=== PATIENT | female | born 1965 | race Caucasian/White ===

== ENCOUNTER 2021-09-21 06:55 | Day surgery (SDC) | payer OTHER ==
[~2021-09-21] VITALS: Ht 162.6 cm; Wt 104.5 kg
[~2021-09-21 06:55] MED LIST: B-121000 MC1 SL; CELEXA10 MG PO; CYMBALTA60 MG PO; L-METHYLFOLATE15 M1 PO; NEURONTIN300 MG PO; WELLBUTRIN SR150 MG PO
--- NOTE | 2021-09-21 08:44 | NUR ---
PT ALERT, ORIENTED AND HERE FOR ROUTINE SCOPE. PT HAS HAD SCOPES PREVIOUS. ALL QUESTIONS ASKED ANSWERED. [place]. GAVE BLESSING
--- NOTE | 2021-09-21 08:45 | NUR ---
09/21/21 0845 Barby Wright 0836- PT ARRIVES TO PACU AWAKE AND TALKING. PT REPORTS NO PAIN OR NAUSEA. RESP EVEN AND UNLABORED. OXYGEN SAT MID TO HIGH 90'S ON 2L VIA CO2 NC. 0844- PT PASSING FLATUS. PT REPORTS THIS HELPS WITH HER ABD CRAMPING.
--- NOTE | 2021-09-21 10:49 | OR ---
[facility] [address] [place], [place] [address] Signed DATE OF OPERATION: 09/21/2021 SURGEON: Juan Luis Godfrey MD PREOPERATIVE DIAGNOSES: 1. Sister with a history of colonic polyps and Crohn disease. 2. Personal history of hyperplastic polyps in 2018 at age 52. 3. Diverticulosis. 4. Internal and external hemorrhoids. POSTOPERATIVE DIAGNOSES: 1. Minimal to moderate sigmoid diverticulosis. 2. Small mid right colon lipoma. 3. Moderate internal hemorrhoids. 4. 6 mm sessile polyp at 40 cm. 5. 5 mm polyp at 70 cm. 6. 4 mm polyps x2 at 12 cm/rectum. PROCEDURE: Colonoscopy with hot biopsy. ESTIMATED BLOOD LOSS: None. INDICATIONS: Savannah is a 56-year-old obese female, asked to see me for a followup colonoscopy. We know her sister who undergoes colonoscopy every year at our [facility]. Part of this is for Crohn disease, but apparently she has had multiple colonic polyps removed as well. There was some consideration she was going to need part of her intestine removed. That has been held off at this time. Savannah came to us in 2018 at the age of 52. She had moderate diverticulosis along with internal and external hemorrhoids. We did remove some hyperplastic polyps as well. She requires monitored anesthesia care because of her body habitus, sleep apnea and her use of marijuana and alcohol. More recently, she has no lower GI complaints. In the office, I had given her a pamphlet on colonoscopy and she recalls the nature of the test. There is risk including, but not limited to gas bloating, crampy abdominal pain, bleeding, perforation requiring surgery, and missed diagnosis. She also recalls the need for the monitored anesthesia care. She had expressed understanding and wished to proceed. PROCEDURE NOTE: Electronically Signed By: JUAN LUIS GODFREY MD 09/21/21 1049 PATIENT NAME: SAVANNAH CONSTANTINO OPERATIVE REPORT DATE OF : 69 REPORT #: [id number] PHYSICIAN: JUAN LUIS GODFREY MD PCP: RICHELLE PIERCE DO REPORT IS CONFIDENTIAL AND NOT TO BE RELEASED WITHOUT AUTHORIZATION [facility] [address], [place] [address] Signed Savannah was taken into our endoscopy suite and placed in the left lateral decubitus position. She was given monitored anesthesia care with propofol per our nurse glost tile sorter. Indeed, Savannah needed some airway control as well as some increase in her propofol. A digital rectal exam was performed and on this occasion she did not have much in the way of external hemorrhoids. She has good sphincter tone. The adult colonoscope was introduced and advanced all the way around into the cecum under direct visualization of the camera. She required extra sedation and abdominal compression in order to advance the scope. Her prep was quite excellent. We could easily see the appendiceal orifice and ileocecal valve. The scope was then slowly withdrawn. The above-mentioned polyps were removed with the help of hot biopsy forceps. We did see a small lipoma in her mid right colon. She does have some diverticula. They were moderate in size, few to moderate in number, and scattered about in the sigmoid colon. The scope had been retroflexed in the rectum. She does have moderate internal hemorrhoid columns. After this, the gas was suctioned out and the colonoscope removed. Savannah tolerated the procedure quite well. RECOMMENDATIONS: I will see Savannah back in my office in 7 to 14 days to review her results. She more than likely will stay on the 5-year rotation. Juan Luis Godfrey MD ALB/MODL /[id number] cc: DO Juan Luis Thomas MD Copies: RICHELLE PIERCE ANDREW L MD ~ Electronically Signed By: JUAN LUIS GODFREY MD 09/21/21 1049 PATIENT NAME: SAVANNAH CONSTANTINO OPERATIVE REPORT DATE OF : 69 REPORT #: [id number] PHYSICIAN: JUAN LUIS GODFREY MD PCP: RICHELLE PIERCE DO REPORT IS CONFIDENTIAL AND NOT TO BE RELEASED WITHOUT AUTHORIZATION
--- NOTE | 2021-09-24 12:15 | PATH ---
[facility] [address] [place], [place] [address] Signed SPECIMEN(S): A COLON POLYP AT 40 CM SPECIMEN(S): B COLON POLYP AT 70 CM SPECIMEN(S): C RECTAL POLYP AT 12 CM SPECIMEN SOURCE: A. COLON POLYP AT 40 CM B. COLON POLYP AT 70 CM C. RECTAL POLYP AT 12 CM CLINICAL HISTORY: Family history of polyps, Crohn's. Colon polyps, lipoma mid right colon, internal hemorrhoids, diverticulosis FINAL PATHOLOGIC DIAGNOSIS: A. Colon polyp at 40 cm: - Hyperplastic polyp (one fragment). B. Colon polyp at 70 cm: - Tubular adenoma (one fragment). C. Rectal polyp at 12 cm: - Hyperplastic polyp (two fragments). JVR:[facility]:[id number] MICROSCOPIC EXAMINATION: Histologic sections of all submitted blocks are examined by light microscopy. These findings, together with the gross examination, support the pathologic diagnosis. GROSS DESCRIPTION: Three specimens are received in three containers, labeled "TO." A. The specimen, labeled "TO, colon polyp at 40 cm," is received in formalin and consists of one mcnair soft tissue fragment that measures 0.2 cm in greatest dimension. The specimen is entirely submitted in cassette (A1). B. The specimen, labeled "TO, colon polyp at 70 cm," is received in formalin and consists of one mcnair soft tissue fragment that measures 0.1 cm in greatest dimension. The specimen is entirely submitted in cassette (B1). C. The specimen, labeled "TO, rectal polyp at 12 cm," is received in formalin and consists of two mcnair soft tissue fragment(s) that measure 0.1-0.2 cm in greatest dimension. The specimen is entirely submitted in cassette (C1). PATIENT NAME: BILLIE CONSTANTINO PATHOLOGY DATE OF : 69 REPORT #: [id number] PHYSICIAN: AURY RUIZ PCP: RICHELLE PIERCE DO REPORT IS CONFIDENTIAL AND NOT TO BE RELEASED WITHOUT AUTHORIZATION [facility] [address] [facility] [place], [place] [address] Signed JS (under the direct supervision of a pathologist) The Gross Description was prepared using a voice recognition system. The report was reviewed for accuracy; however, sound-alike word errors, addition and/or deletions may occur. If there is any question about this report, please contact Client Services. PERFORMING LABORATORY: The technical component was performed by [facility], [address] [place] [address] (CLIA# [id number]). Professional interpretation was performed by [facility], [address] [place] [id number] (CLIA#: [id number]). Diagnostician: Hola Howell MD Pathologist Electronically Signed 09/24/2021 Copies: ~ PATIENT NAME: BILLIE CONSTANTINO PATHOLOGY DATE OF : 69 REPORT #: [id number] PHYSICIAN: AURY RUIZ PCP: RICHELLE PIERCE DO REPORT IS CONFIDENTIAL AND NOT TO BE RELEASED WITHOUT AUTHORIZATION
== END 2021-09-21 09:10 | disposition home or self-care (01) ==
LOC: DS 06:55 → OPS 06:55 → DS 08:30 → OPS 08:30
PROVIDERS: ATTEND Colon & Rectal Surgery
PROC: 0DBE8ZX Excision of Large Intestine, Via Natural or Artificial Opening Endoscopic, Diagnostic (ICD-10-PCS; principal; 2021-09-21 08:30)
DX: D12.6 Benign neoplasm of colon, unspecified (principal); D17.5 Benign lipomatous neoplasm of intra-abdominal organs; E66.9 Obesity, unspecified; K64.0 First degree hemorrhoids; K64.4 Residual hemorrhoidal skin tags; G47.33 Obstructive sleep apnea (adult) (pediatric); K57.30 Diverticulosis of large intestine without perforation or abscess without bleeding; F10.99 Alcohol use, unspecified with unspecified alcohol-induced disorder; F12.10 Cannabis abuse, uncomplicated; Z79.899 Other long term (current) drug therapy; Z83.71 Family history of colonic polyps
CPT/HCPCS: 00811; J2001; J2704; J7121

== ENCOUNTER 2024-11-03 21:32 | Emergency (ER) | payer OTHER ==
[~2024-11-03] VITALS: Ht 162.6 cm; Wt 90.0 kg
--- NOTE | ~2024-11-03 | EKG ---
[facility] [address] [facility], [place] [address] Draft EK completed, results pending confirmation PATIENT NAME: BILLIE CONSTANTINO Electrocardiogram DATE OF : 69 PHYSICIAN: PRELIMINARY REPORT #: [id number] REPORT IS CONFIDENTIAL AND NOT TO BE RELEASED WITHOUT AUTHORIZATION
[2024-11-03] MEDS ORDERED: BUPROPION XL150 MG (21:48)
[2024-11-03] MEDS ORDERED: DULOXETINE HCL60 MG (21:48)
[2024-11-03] MEDS ORDERED: VITAMIN D21250 MCG (21:48)
[2024-11-03] MEDS ORDERED: GABAPENTIN300 MG PO (21:48)
[2024-11-03 21:58] LABS: BASOPHILS 0.3 % (0.1-1.2); EOSINOPHILS 0.6 % (0.7-5.8); LYMPHOCYTES 12.8 % (19.3-51.7); MCH 30.2 PG (25.6-32.2); MCHC 34.5 g/dL (32.2-35.5); MCV 87.5 fL (79.4-94.8); MONOCYTES 8.4 % (4.7-12.5); NEUTROPHILS 77.2 % (34.0-71.1); RBC 5.37 M/uL (3.93-5.22)
[2024-11-03 22:21] LABS: ALT (SGPT) 19.0 U/L (14-59); AST (SGOT) 17.0 U/L (15-37); GLOMERULAR FILTRATION RATE,EST 73.0 mL/min (>60); PROTEIN, TOTAL 7.7 g/dL (6.4-8.2); UREA NITROGEN 7.0 mg/dL (7-18)
[2024-11-03] MEDS ORDERED: SODIUM CHLORIDE 0.9% 1,000 ML IV SCH (23:30)
[2024-11-03] MEDS ORDERED: HYDROmorphone HCL 1 MG/ML SYR IV PRN (23:30)
[2024-11-04 01:09] LABS: BLOOD/HGB, URINE NEGATIVE (Negative); KETONE, URINE >=80 (Negative); LEUK ESTERASE, URINE NEGATIVE (negative); NITRITE, URINE NEGATIVE (negative)
[2024-11-04] MEDS ORDERED: HYDROCODONE BIT/ACETAMINOPHEN 5/325 MG 1 TAB HOME.PACK PO PRN (01:30)
[2024-11-04] MEDS ORDERED: ONDANSETRON 4 MG HOME.PACK SL ONE (01:30)
[2024-11-04] MEDS ORDERED: POTASSIUM CHLORIDE 10 MEQ TABCR PO ONE (01:30)
[2024-11-04] MEDS ORDERED: HYDROCODON-ACE1 EA10 PO (01:33)
[2024-11-04] MEDS ORDERED: ONDANSETRON ODT8 MG PO (01:33)
[2024-11-04] MEDS ORDERED: KLOR-CON20 MEQ PO (01:33)
[2024-11-04 01:58] VITALS: BP 145/93
--- NOTE | 2024-11-07 10:40 | EKG ---
[facility] [address] [facility] [place], [place] [address] Signed Normal sinus rhythm Nonspecific ST abnormality Prolonged QT Abnormal ECG No previous ECGs available Confirmed by Stephon Gutierrez DO ([id number]) on 11/07/2024 10:40:12 AM Electronically Signed By: STEPHON GUTIERREZ DO 11/07/24 1040 PATIENT NAME: BILLIE CONSTANTINO Electrocardiogram DATE OF : 69 PHYSICIAN: STEPHON GUTIERREZ DO REPORT #: [id number] REPORT IS CONFIDENTIAL AND NOT TO BE RELEASED WITHOUT AUTHORIZATION
== END 2024-11-04 01:58 | disposition home or self-care (01) ==
LOC: ED 21:32
PROVIDERS: Emergency Medicine
DX: K29.00 Acute gastritis without bleeding (principal); E87.6 Hypokalemia; Z79.899 Other long term (current) drug therapy
CPT/HCPCS: 36415; 74177; 80053; 81003; 83690; 83735; 84484; 85025; 93005; 93010; 96361; 96374; 96375; 96376; 99284-25; A9270; J1171; J2405; J7030; Q9967